=== PATIENT | female | born 1995 | race African-American/Black ===

== ENCOUNTER 2017-04-25 01:26 | Emergency (ER) | payer OTHER ==
[~2017-04-25] VITALS: Ht 167.6 cm; Wt 68.0 kg
[2017-04-25] MEDS ORDERED: MIRENA1 EACH IY (01:50)
[2017-04-25] MEDS ORDERED: NORCO 5-325 TA1 EACH PO (02:49)
[2017-04-25 03:10] VITALS: BP 115/49
== END 2017-04-25 03:12 | disposition home or self-care (01) ==
LOC: M.ERS 01:26
DX: N75.1 Abscess of Bartholin's gland (principal)

== ENCOUNTER 2017-08-17 11:45 | Emergency (ER) | payer MEDICAID ==
[~2017-08-17] VITALS: Ht 167.6 cm; Wt 68.0 kg
[~2017-08-17 11:45] MED LIST: MIRENA1 EACH IY; NORCO 5-325 TA1 EACH PO
[2017-08-17 12:21] LABS: URINE BILIRUBIN NEGATIVE (Negative); URINE BLOOD 3+ (Negative); URINE CLARITY CLEAR; URINE COLOR YELLOW; URINE GLUCOSE-RANDOM NEGATIVE (Negative); URINE KETONES NEGATIVE (Negative); URINE LEUKOCYTES-REFLEX NEGATIVE (Negative); URINE NITRITE-REFLEX NEGATIVE (Negative); URINE PROTEIN NEGATIVE (Negative); URINE SPECIFIC GRAVITY >= 1.030 (1.005-1.030); URINE UROBILINOGEN 0.2 E.U./dl (0.2-1.0)
[2017-08-17 12:37] LABS: MUCUS 4-6 Moderate strn/LPF (None Seen); SQUAMOUS 4-10 Moderate /LPF (0-3); URINE RBC 3-10 Few /HPF (0-2); URINE WBC-REFLEX 0-5 Rare /HPF (0-5)
[2017-08-17 12:38] LABS: CASTS None Seen /LPF (None Seen); CRYSTALS None Seen /LPF (None Seen)
[2017-08-17] MEDS ORDERED: BACTRIM DS TAB1 EACH PO (13:06)
[2017-08-17 13:13] VITALS: BP 120/64
[2017-08-17] MEDS ORDERED: MACROBID 100 M100 M1 PO (13:31)
== END 2017-08-17 13:15 | disposition home or self-care (01) ==
LOC: M.ERS 11:45
PROVIDERS: Personal Emergency Response Attendant
DX: N39.0 Urinary tract infection, site not specified (principal)

== ENCOUNTER 2018-01-18 16:47 | Emergency (ER) | payer OTHER, MEDICAID ==
[~2018-01-18] VITALS: Ht 167.6 cm; Wt 72.6 kg
[~2018-01-18 16:47] MED LIST changes: +BACTRIM DS TAB1 EACH PO; +MACROBID 100 M100 M1 PO
[2018-01-18 17:54] VITALS: BP 112/68
== END 2018-01-18 17:54 | disposition home or self-care (01) ==
LOC: M.ERS 16:47
DX: S06.0X0A Concussion without loss of consciousness, initial encounter (principal); V49.09XA Driver injured in collision with other motor vehicles in nontraffic accident, initial encounter; Y93.89 Activity, other specified; Y92.89 Other specified places as the place of occurrence of the external cause; Y99.8 Other external cause status

== ENCOUNTER 2018-01-20 20:13 | Emergency (ER) | payer OTHER, MEDICAID ==
[~2018-01-20] VITALS: Ht 167.6 cm; Wt 63.5 kg
[2018-01-20] MEDS ORDERED: CLEOCIN HCL150 MG PO (20:41)
[2018-01-20] MEDS ORDERED: PERCOCET 7.5-31 EACH PO (20:41)
[2018-01-20 20:43] LABS: URINE BILIRUBIN NEGATIVE (Negative); URINE BLOOD 1+ (Negative); URINE CLARITY CLEAR; URINE COLOR YELLOW; URINE GLUCOSE-RANDOM NEGATIVE (Negative); URINE KETONES NEGATIVE (Negative); URINE LEUKOCYTES-REFLEX NEGATIVE (Negative); URINE NITRITE-REFLEX NEGATIVE (Negative); URINE PROTEIN NEGATIVE (Negative); URINE SPECIFIC GRAVITY 1.015 (1.005-1.030); URINE UROBILINOGEN 0.2 E.U./dl (0.2-1.0)
[2018-01-20 20:52] LABS: SQUAMOUS 0-3 Few /LPF (0-3); URINE WBC-REFLEX None Seen /HPF (0-5)
[2018-01-20 20:53] VITALS: BP 126/72
[2018-01-20 20:53] LABS: CASTS None Seen /LPF (None Seen); CRYSTALS None Seen /LPF (None Seen); MUCUS 4-6 Moderate strn/LPF (None Seen); URINE RBC 3-10 Few /HPF (0-2)
== END 2018-01-20 20:50 | disposition home or self-care (01) ==
LOC: M.ERS 20:13
PROVIDERS: Emergency Medicine
DX: N76.4 Abscess of vulva (principal); Z98.890 Other specified postprocedural states

== ENCOUNTER 2018-01-23 17:10 | Emergency (ER) | payer OTHER, MEDICAID ==
[~2018-01-23] VITALS: Ht 167.6 cm; Wt 63.5 kg
[~2018-01-23 17:10] MED LIST changes: +CLEOCIN HCL150 MG PO; +PERCOCET 7.5-31 EACH PO
[2018-01-23 17:18] VITALS: BP 101/55
== END 2018-01-23 17:55 | disposition home or self-care (01) ==
LOC: M.ERS 17:10
DX: N76.0 Acute vaginitis (principal); F17.210 Nicotine dependence, cigarettes, uncomplicated; Z98.890 Other specified postprocedural states

== ENCOUNTER 2018-05-24 18:53 | Emergency (ER) | payer OTHER, MEDICAID ==
[~2018-05-24] VITALS: Ht 167.6 cm; Wt 61.2 kg
[2018-05-24 19:53] LABS: ABSOLUTE LYMPHOCYTES 1.7 thou/uL (0.8-5.3); ABSOLUTE MONOCYTES 0.6 thou/uL (0.0-1.2); ABSOLUTE NEUTROPHILS 6.7 thou/uL (1.6-8.1); BASOPHILS 0.4 %; EOSINOPHILS 0.4 %; HEMOGLOBIN 13.4 gm/dL (12.0-15.0); MCH 29.2 pg (26.0-34.0); MCHC 33.6 g/dL (28.0-37.0); MCV 86.9 fL (80.0-100.0); MONOCYTES 6.1 %; MPV 9.2 fl. (7.2-11.1); NUCLEATED RBCS 0 /100WBC; PLATELET COUNT* 171 thou/uL (150-400); POLYS 74.1 %; RDW-CV 13.2 % (10.5-14.5)
[2018-05-24 20:08] LABS: ALBUMIN 4.4 g/dL (3.4-5.0); CALCIUM 9.4 mg/dL (8.5-10.1); CREATININE 0.8 mg/dL (0.6-1.3); POTASSIUM 3.9 mmol/L (3.5-5.1); TOTAL BILIRUBIN 0.7 mg/dL (<0.1-1.0); TOTAL PROTEIN 7.8 g/dL (6.4-8.2)
[2018-05-24 20:17] LABS: URINE BILIRUBIN NEGATIVE (Negative); URINE BLOOD 1+ (Negative); URINE CLARITY TURBID; URINE COLOR YELLOW; URINE GLUCOSE-RANDOM NEGATIVE (Negative); URINE KETONES NEGATIVE (Negative); URINE NITRITE-REFLEX NEGATIVE (Negative); URINE PROTEIN NEGATIVE (Negative); URINE SPECIFIC GRAVITY 1.025 (1.005-1.030); URINE UROBILINOGEN 0.2 E.U./dl (0.2-1.0)
[2018-05-24 20:18] LABS: URINE LEUKOCYTES-REFLEX 2+ (Negative)
[2018-05-24 20:27] LABS: BACTERIA-REFLEX 1-9 Few /HPF (None Seen); CASTS None Seen /LPF (None Seen); CRYSTALS None Seen /LPF (None Seen); SQUAMOUS 0-3 Few /LPF (0-3); URINE RBC 0-2 Rare /HPF (0-2); URINE WBC-REFLEX 0-5 Rare /HPF (0-5)
[2018-05-24] MEDS ORDERED: CITRATE OF MAG296 ML PO (21:49)
[2018-05-24] MEDS ORDERED: GOLYTELY PACKE1 EACH PO (21:49)
[2018-05-24] MEDS ORDERED: MIRALAX17 GM PO (21:49)
[2018-05-24 22:07] VITALS: BP 101/56
[2018-05-24] MEDS ORDERED: FLAGYL500 M1 PO (23:11)
== END 2018-05-24 22:08 | disposition home or self-care (01) ==
LOC: M.ERS 18:53
PROVIDERS: Physician Assistant
DX: K59.00 Constipation, unspecified (principal); N76.0 Acute vaginitis; B96.89 Other specified bacterial agents as the cause of diseases classified elsewhere; Z98.890 Other specified postprocedural states